=== PATIENT | female | born 1955 | race Caucasian/White ===

== ENCOUNTER 2019-09-06 13:43 | Observation (INO) | payer OTHER ==
[~2019-09-06 13:43] MED LIST: Iopamidol-370 76% 500 ML 1 ML ONE
--- NOTE | 2019-09-06 14:43 | CT ---
Exam: CT brain PROVIDED CLINICAL HISTORY: Headache, left-sided weakness COMPARISON: None FINDINGS: The ventricular system is normal in size and morphology. No evidence for intracranial hemorrhage or mass effect. The extracranial soft tissues and osseous structures demonstrate no evidence for an acute abnormality. IMPRESSION: No evidence for intracranial hemorrhage or mass effect. Findings discussed with the emergency departm ent 2:41 PM 09/06/2019.
[2019-09-06] MEDS ORDERED: Lorazepam 2 MG/ML VIAL ONE (15:06)
[2019-09-06] MEDS ORDERED: Aspirin Chewable 81 MG TAB ONE (15:07)
--- NOTE | 2019-09-06 15:12 | CT ---
EXAM: CT angiogram great vessels neck with IV contrast and three-dimensional reconstructions CT angiogram brain with IV contrast and three-dimensional reconstructions PROVIDED CLINICAL HISTORY: Left-sided weakness COMPARISON: None FINDINGS: There is a normal three-vessel configuration of the great vessels at the arch. The common carotid, internal carotid, subclavian and vertebral arteries demonstrate no evidence for s ignificant stenosis. There is no evidence for focal vessel stenosis, branch occlusion or aneurysm involving the intracrani al circulation. IMPRESSION: No significant stenosis.
--- NOTE | 2019-09-06 15:13 | RAD ---
EXAM: Portable chest PROVIDED CLINICAL HISTORY: Left-sided weakness COMPARISON: None FINDINGS: Cardiac and mediastinal silhouette is within normal limits. No focal consolidation, pleural fluid or pneumothorax evident. IMPRESSION: No evidence for an acute cardiopulmonary process.
[2019-09-06 16:01] LABS: Bilirubin Negative (Negative); Blood, Urine Negative (Negative); Clarity Clear (Clear); Glucose, Urine (Dipstick) Normal (Negative); Leukocyte Negative Leu/uL (Negative); Nitrite Negative (Negative); Protein, Urine (Dipstick) Negative (Neg-Trace); Urobilinogen Normal mg/dL (Less than 2)
[2019-09-06 16:33] LABS: Amphetamine Not Detected (NotDetected); Barbiturates Screen Not Detected (NotDetected); Benzodiazepine Screen Not Detected (NotDetected); Cocaine Metabolite Screen Not Detected (NotDetected); Medtox Control Line Valid? VALID (VALID); Medtox Reader # READER 1; Methadone Not Detected (NotDetected); Methamphetamine Not Detected (NotDetected); Opiate Screen Not Detected (NotDetected); Oxycodone Screen Not Detected (NotDetected); Phencyclidine (PCP) Not Detected (NotDetected); THC/Cannabinoid Screen Not Detected (NotDetected); Tricyclic Screen Not Detected (NotDetected)
[2019-09-06] MEDS ORDERED: diphenhydrAMINE 50 MG/ML VIAL ONE (16:36)
[2019-09-06] MEDS ORDERED: Metoclopramide HCl 10 MG/2 ML VIAL ONE (16:36)
[2019-09-06 17:59] LABS: #Eosinphils 0.1 thou/uL (0.0-0.7); #Lymphocytes 3.1 thou/uL (1.20-3.40); #Monocytes 0.8 thou/uL (0.11-0.59); #Neutrophils 5.8 thou/uL (1.40-6.50); %Basophils 0.2 % (0.0-1.0); %Lymphocytes 31.3 % (21.0-51.0); %Monocytes 8.6 % (0.0-10.0); Hemoglobin 11.5 g/dL (12.0-16.0); Mean Corpuscular HGB CONC 32.7 g/dL (32.0-36.0); Mean Corpuscular Hemoglobin 29.6 pg (27.0-31.0); Mean Corpuscular Volume 90.7 fL (78.0-98.0); Mean Platelet Volume 7.1 fL (7.4-10.4); Platelet Count 352 thou/uL (130-400); RBC Distribution Width 11.9 % (11.5-14.5); Red Blood Cell (RBC) Count 3.88 mill/uL (4.20-5.40); White Blood Cell (WBC) Count 9.8 thou/uL (4.8-10.8)
[2019-09-06 18:09] LABS: INR-International Normal Ratio 0.9; PTT 27.7 SEC (22.9-36.1); Prothrombin Time 12.6 sec (12.0-14.7)
[2019-09-06 18:10] LABS: ALT (SGPT) 14 U/L (8-55); AST (SGOT) 18 U/L (5-34); Albumin 3.5 g/dL (3.4-4.8); Alkaline Phosphatase 67 U/L (40-110); Anion Gap 11 mmol/L (10-20); BUN (Urea Nitrogen) 11 mg/dL (9.8-20.1); Bilirubin, Total 0.2 mg/dL (0.2-1.2); CK (CPK) 41 U/L (29-168); Calc. Creatinine Clearance 0 mL/min (70-130); Calcium 8.5 mg/dL (7.8-10.44); Carbon Dioxide 21 mmol/L (23-31); Chloride 110 mmol/L (98-107); Estimated GFR-MDRD 62; Globulin 2.8 g/dL (2.4-3.5); Glucose 92 mg/dL (80-115); Potassium 4.4 mmol/L (3.5-5.1); Protein, Total 6.3 g/dL (6.0-8.3); Sodium 138 mmol/L (136-145)
[2019-09-06 18:11] LABS: Troponin I 0.258 ng/mL (< 0.028)
[2019-09-06] MEDS ORDERED: Labetalol HCl 100 MG/20 ML VIAL SLOW IVP PRN (18:18)
[2019-09-06] MEDS ORDERED: hydrALAZINE 20 MG/ML VIAL SLOW IVP PRN (18:18)
--- NOTE | 2019-09-06 18:23 | PDOC.HHP ---
Hospitalist HPI - History of Present Illness left sided weakness, headache History of Present Illness: THis is a 64 year old female with past medical history of stroke in the past, hypertension who presents to the emergency room with headache and numbness that started after eating lunch. Patient states she ate lunch and then had an acute left sided headache. SHe is unsure how long it lasted for but when she got up and touched her face she noticed that her left cheek was numb. She then reported nausea and stated she vomited shortly after. Patient also reports numbness in her left arm and left leg and cramps and spasms in her left hand and left leg. SHe has had a stroke previously on the left side in the past. During that time her left hand used to cramp up as well and she would get a contracture in her fingers making it difficult to move her fingers. ED Course: THe patient presented with BP Of [address] head showed no acute disease. CTA showed no significant stenosis. Chest xRya was normal. Patient had an NIH stroke scale of 7, was not given TPA since per ER attending patient' s exam findings were inconsistent and seemed to have poor effort during neuro exam. Hospitalist ROS - Review of Systems Constitutional: denies: fever, chills Eyes: denies: vision change ENT: denies: ear pain, ear discharge Respiratory: denies: cough, dry, shortness of breath Cardiovascular: denies: chest pain, palpitations, orthopnea Gastrointestinal: denies: nausea, vomiting, abdominal pain Genitourinary: denies: dysuria, frequency - Medication Medications: Lisinopril Hospitalist History - Past Medical History Other Medical History: Hypertension CVA In the past COPD - Past Surgical History Other Surgical History: Hysterectomy - Family History Other Family History: Sister had stroke Mother heart disease Daughter adrenal cancer with metastasis to lungs - Dad prostate and bladder cancer MOther colon cancer Brother had heart attack - Social History Smoking Status: Former smoker (SMoked 5-6 cigarettes daily for 8 years, quit 2 years ago) Alcohol: reports: None Drugs: reports: Other (former cocaine user, used it daily and quit 2 years ago) . 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 Dec ROM left arm and left leg. Musculoskeletal - other findings: weakness left middle/ring/pinky finger. 4/5 LUE, 3/5 LLE, 5/5 RUE, 5/5 RLE Psychiatric: normal affect, normal behavior, A&O x 3, oriented to person Hospitalist Results - Labs Result Diagrams: 09/06/19 17:35 09/06/19 17:35 Lab results: WBC 9.8 thou/uL (4.8-10.8) 09/06/19 17:35 Hgb 11.5 g/dL (12.0-16.0) L 09/06/19 17:35 Hct 35.2 % (36.0-47.0) L 09/06/19 17:35 MCV 90.7 fL (78.0-98.0) 09/06/19 17:35 Plt Count 352 thou/uL (130-400) 09/06/19 17:35 Neutrophils % 59.0 % (42.0-75.0) 09/06/19 17:35 Sodium 138 mmol/L (136-145) 09/06/19 17:35 Potassium 4.4 mmol/L (3.5-5.1) 09/06/19 17:35 Chloride 110 mmol/L (98-107) H 09/06/19 17:35 Carbon Dioxide 21 mmol/L (23-31) L 09/06/19 17:35 BUN 11 mg/dL (9.8-20.1) 09/06/19 17:35 Creatinine 0.91 mg/dL (0.6-1.1) 09/06/19 17:35 Glucose 92 mg/dL (80-115) 09/06/19 17:35 Calcium 8.5 mg/dL (7.8-10.44) 09/06/19 17:35 Total Bilirubin 0.2 mg/dL (0.2-1.2) 09/06/19 17:35 AST 18 U/L (5-34) 09/06/19 17:35 ALT 14 U/L (8-55) 09/06/19 17:35 Alkaline Phosphatase 67 U/L (40-110) 09/06/19 17:35 Creatine Kinase 41 U/L (29-168) 09/06/19 17:35 Troponin I 0.258 ng/mL (< 0.028) H 09/06/19 17:35 Serum Total Protein 6.3 g/dL (6.0-8.3) 09/06/19 17:35 Albumin 3.5 g/dL (3.4-4.8) 09/06/19 17:35 Urine Ketones Negative mg/dL (Negative) 09/06/19 15:49 Urine Blood Negative (Negative) 09/06/19 15:49 Urine Nitrite Negative (Negative) 09/06/19 15:49 Ur Leukocyte Esterase Negative Isabel/uL (Negative) 09/06/19 15:49 - EKG Interpretation EKG: normal sinus rhythm with PVC Hospitalist H&P A/P - Plan Plan: This is a 64 year old female with hypertension, CVA in the past who presented to the ER with left sided weakness, headache admitted for CVA rule out Left sided weakness /headache -suspicious for stroke vs complicated migraine - s/p aspirin 325 mg in the ER - CT head normal, CTA showed no sign stenosis, chest X Ray normal. Will check MRI brain and ECHO - continue statin 40 mg qhs - IV labetalol and hydralazine prn for SBP > 220 - neurology consult Elevated troponin - no chest pain. Trop trending up to 0.2, will continue to trend - will consider anticoagulation in am if continues to trend up - repeat eKG - check ECHO ANemia - Hb 11, will monitor Hypertension - hold meds for now DVT prophylaxis: lovenox COde status: full code
[2019-09-06] MEDS ORDERED: diphenhydrAMINE 25 MG CAP PO PRN (18:26)
[2019-09-06] MEDS ORDERED: Prochlorperazine 10 MG/2 ML VIAL IM PRN (18:29)
[2019-09-06 20:00] VITALS: BMI 31.6
[2019-09-06 20:34] LABS: Troponin I Less than 0.010 ng/mL (< 0.028)
[2019-09-06] MEDS: Atorvastatin Calcium 40 MG TAB PO SCH (22:04)
[2019-09-07 05:48] LABS: Hemoglobin 11.4 g/dL (12.0-16.0); Mean Corpuscular HGB CONC 30.4 g/dL (32.0-36.0); Mean Corpuscular Hemoglobin 28.2 pg (27.0-31.0); Mean Corpuscular Volume 92.8 fL (78.0-98.0); Mean Platelet Volume 7.6 fL (7.4-10.4); Platelet Count 319 thou/uL (130-400); Red Blood Cell (RBC) Count 4.03 mill/uL (4.20-5.40)
[2019-09-07 06:04] LABS: Hemoglobin A1c 5.6 % (4.0-6.0)
[2019-09-07 06:19] LABS: ALT (SGPT) 12 U/L (8-55); AST (SGOT) 16 U/L (5-34); Albumin 3.4 g/dL (3.4-4.8); Alkaline Phosphatase 64 U/L (40-110); Anion Gap 13 mmol/L (10-20); BUN (Urea Nitrogen) 17 mg/dL (9.8-20.1); Bilirubin, Total 0.2 mg/dL (0.2-1.2); Calc. Creatinine Clearance 65 mL/min (70-130); Calcium 8.7 mg/dL (7.8-10.44); Carbon Dioxide 21 mmol/L (23-31); Cardiac Risk 2.9 (Less than 4.5); Chloride 109 mmol/L (98-107); Cholesterol 154 mg/dl (< 200 Desired); Estimated GFR-MDRD 47; Globulin 3.2 g/dL (2.4-3.5); Glucose 101 mg/dL (80-115); HDL Cholesterol 54 mg/dL (>60 Neg Risk); LDL Cholesterol, Calculated 85 mg/dL; Potassium 4.3 mmol/L (3.5-5.1); Protein, Total 6.6 g/dL (6.0-8.3); Sodium 139 mmol/L (136-145); Triglycerides 74 mg/dL (Less than 150)
[2019-09-07] MEDS: Aspirin 81 mg Enteric Coated Tablet PO SCH (09:20)
[2019-09-07] MEDS: Enoxaparin Sodium 40 MG/0.4 ML SYRINGE SC SCH (09:20)
[2019-09-07] MEDS ORDERED: Acetaminophen 325 MG TAB PO PRN (11:54)
[2019-09-07] MEDS ORDERED: Prochlorperazine Maleate 5 MG TAB PO PRN (12:07)
--- NOTE | 2019-09-07 12:22 | CON ---
DATE OF CONSULTATION: 09/07/2019 NEUROLOGY CONSULTATION REASON FOR CONSULTATION: Left-sided weakness, headache, rule out stroke. HISTORY OF PRESENT ILLNESS: Ms. Vicente Hansen is a 64-year-old female with medical history significant for stroke, hypertension, presented with headache and numbness after eating lunch yesterday. She also felt numbness and paresthesias in the left cheek and reported increased numbness and paresthesias in her left upper and lower extremities and worsening of weakness on the left side. She does have residual weakness from the prior stroke. She was brought to the emergency room, where a head CT was done, which did not reveal any acute intracranial pathology. CT angiogram, no significant stenosis. Chest x-ray was also unremarkable. She had NIH stroke scale of 7, so tPA was not given because of rapidly improving deficits. She denies nausea or vomiting, dizziness, loss of vision or loss of consciousness, chest pain, or abdominal pain. REVIEW OF SYSTEMS: All systems were reviewed and were negative except for pertinent positives and negatives mentioned in the HPI. MEDICATION: Lisinopril. PAST MEDICAL HISTORY: Hypertension, prior CVA, COPD. PAST SURGICAL HISTORY: Hysterectomy. FAMILY HISTORY: Mother had heart disease and sister has stroke. Daughter has adrenal cancer. The mother also has history of colon cancer and brother had coronary artery disease. 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 Reports that she has formerly used cocaine 09/06/19 17:35 Lab results: WBC 9.8 thou/uL (4.8-10.8) 09/06/19 17:35 Hgb 11.5 g/dL (12.0-16.0) L 09/06/19 17:35 Hct 35.2 % (36.0-47.0) L 09/06/19 17:35 MCV 90.7 fL (78.0-98.0) 09/06/19 17:35 Plt Count 352 thou/uL (130-400) 09/06/19 17:35 Neutrophils % 59.0 % (42.0-75.0) 09/06/19 17:35 Sodium 138 mmol/L (136-145) 09/06/19 17:35 Potassium 4.4 mmol/L (3.5-5.1) 09/06/19 17:35 Chloride 110 mmol/L (98-107) H 09/06/19 17:35 Carbon Dioxide 21 mmol/L (23-31) L 09/06/19 17:35 BUN 11 mg/dL (9.8-20.1) 09/06/19 17:35 Creatinine 0.91 mg/dL (0.6-1.1) 09/06/19 17:35 Glucose 92 mg/dL (80-115) 09/06/19 17:35 Calcium 8.5 mg/dL (7.8-10.44) 09/06/19 17:35 Total Bilirubin 0.2 mg/dL (0.2-1.2) 09/06/19 17:35 AST 18 U/L (5-34) 09/06/19 17:35 ALT 14 U/L (8-55) 09/06/19 17:35 Alkaline Phosphatase 67 U/L (40-110) 09/06/19 17:35 Creatine Kinase 41 U/L (29-168) 09/06/19 17:35 Troponin I 0.258 ng/mL (< 0.028) H 09/06/19 17:35 Serum Total Protein 6.3 g/dL (6.0-8.3) 09/06/19 17:35 Albumin 3.5 g/dL (3.4-4.8) 09/06/19 17:35 Urine Ketones Negative mg/dL (Negative) 09/06/19 15:49 Urine Blood Negative (Negative) 09/06/19 15:49 Urine Nitrite Negative (Negative) 09/06/19 15:49 Ur Leukocyte Esterase Negative Isabel/uL (Negative) 09/06/19 15:49 - EKG Interpretation EKG: normal sinus rhythm with PVC PHYSICAL EXAMINATION: 160/80 88 18 CVS: Regular rate and rhythm. CHEST: Clear. ABDOMEN: Soft. NECK: No carotid bruit. NEUROLOGIC: Mental status; the patient is alert and oriented to person, place, and time. Cranial nerves 2 through 12 are intact. Motor, muscle tone and bulk are normal. Strength 5/5 in the right upper and lower extremities, and left upper extremity is 4+/5, left lower extremity is 3/5. Gait not tested because of the patient's safety reasons. Reflexes 2+ bilaterally and sensory intact. Cerebellar, unable to perform on the right secondary to weakness. DATA REVIEWED: I reviewed the labs, which were significant for anemia. Head CT did not reveal any acute intracranial pathology. ASSESSMENT AND PLAN: Ms. Hansen is a 64-year-old female with a history significant hypertension and prior stroke, presented with worsening of residual left-sided weakness and headache. Differential diagnosis includes new stroke versus complicated migraine. Recommend an MRI to rule out acute intracranial pathology. Recommend echocardiogram to rule out cardioembolic source and telemetry to rule out arrhythmias. Consider Benadryl and Compazine for headache. Neurochecks every 4 hours. Continue blood pressure management per primary team. Consider aspirin and statin for secondary stroke prevention. Neuro checks every 4 hours. Continue home medications. Continue medical management per Primary Team. Further recommendation depends on the results of the testing. PT/OT/speech. Thank you for the consult. Job ID: [id number] MTDD
--- NOTE | 2019-09-07 14:19 | PDOC.HOSPP ---
- Subjective Encounter Date: 09/07/19 Encounter Time: 14:19 - Objective Vital Signs & Weight: Vital Signs (12 hours) Temp Pulse Pulse Pulse Resp BP BP 09/07/19 11:35 97.5 F L 96 15 09/07/19 09:56 77 99 124/76 135/76 09/07/19 09:55 99 124/76 135/76 09/07/19 08:08 98.2 F 79 16 09/07/19 04:46 98.4 F 76 14 BP Pulse Ox 09/07/19 11:35 137/93 H 96 09/07/19 09:56 09/07/19 09:55 09/07/19 08:08 131/68 94 L 09/07/19 04:46 120/62 97 Weight Weight 190 lb I&O: 09/06/19 09/07/19 09/08/19 06:59 06:59 06:59 Intake Total 486 Balance 486 Result Diagrams: 09/07/19 05:36 09/07/19 05:36 Hospitalist ROS - Medication Medications: Active Medications Generic Name Dose Route Start Last Admin Trade Name Freq PRN Reason Stop Dose Admin Acetaminophen 650 mg 09/07/19 11:54 09/07/19 13:24 Tylenol PO 650 mg Q6H PRN Administration Headache Aspirin 81 mg 09/07/19 09:00 09/07/19 09:20 Ecotrin PO 81 mg DAILY RONY Administration Atorvastatin Calcium 40 mg 09/06/19 21:00 09/06/19 22:04 Lipitor PO 40 mg HS RONY Administration Diphenhydramine HCl 25 mg 09/06/19 18:26 09/07/19 12:00 Benadryl PO 25 mg Q6H PRN Administration Fever/Mild Pain/HEADACHE Enoxaparin Sodium 40 mg 09/07/19 09:00 09/07/19 09:20 Lovenox SC 40 mg 0900 RONY Administration Prochlorperazine Maleate 10 mg 09/07/19 12:07 09/07/19 12:38 Compazine PO 10 mg Q4H PRN Administration Nausea/Vomiting Sodium Chloride 10 ml 09/06/19 18:18 09/06/19 22:04 Flush - Normal Saline IVF 10 ml PRN PRN Administration Saline Flush - Exam General Appearance: NAD, awake alert Eye: PERRL, anicteric sclera ENT: normocephalic atraumatic, no oropharyngeal lesions Neck: supple, no JVD Heart: RRR, no murmur, no gallops, no rubs Respiratory: CTAB, no wheezes, no rales, no ronchi Gastrointestinal: soft, non-tender, non-distended, normal bowel sounds Extremities: no cyanosis, no clubbing, no edema Skin: normal turgor, no lesions, no rashes Neurological: cranial nerve grossly intact, normal sensation to touch, no focal deficits, no new deficit Hosp A/P - Plan This is a 64 year old male who presented
--- NOTE | 2019-09-07 14:30 | PDOC.HOSPP ---
- Subjective Encounter Date: 09/07/19 Encounter Time: 12:00 Subjective: The patient continues to report 8/10 headache. She still has some left sided weakness. No nausea or double vision . MRI pending HIatal hernia - pt reporting some acid reflux and requesting omeprazole. She is asking if this can be corrected Restless leg syndrome - pt reports taking ropinirole 3 mg qhs and was requesting this - Objective Vital Signs & Weight: Vital Signs (12 hours) Temp Pulse Pulse Pulse Resp BP BP 09/07/19 11:35 97.5 F L 96 15 09/07/19 09:56 77 99 124/76 135/76 09/07/19 09:55 99 124/76 135/76 09/07/19 08:08 98.2 F 79 16 09/07/19 04:46 98.4 F 76 14 BP Pulse Ox 09/07/19 11:35 137/93 H 96 09/07/19 09:56 09/07/19 09:55 09/07/19 08:08 131/68 94 L 09/07/19 04:46 120/62 97 Weight Weight 190 lb I&O: 09/06/19 09/07/19 09/08/19 06:59 06:59 06:59 Intake Total 486 Balance 486 Result Diagrams: 09/07/19 05:36 09/07/19 05:36 Hospitalist ROS - Review of Systems Constitutional: denies: fever, chills - Medication Medications: Active Medications Generic Name Dose Route Start Last Admin Trade Name Freq PRN Reason Stop Dose Admin Acetaminophen 650 mg 09/07/19 11:54 09/07/19 13:24 Tylenol PO 650 mg Q6H PRN Administration Headache Aspirin 81 mg 09/07/19 09:00 09/07/19 09:20 Ecotrin PO 81 mg DAILY RONY Administration Atorvastatin Calcium 40 mg 09/06/19 21:00 09/06/19 22:04 Lipitor PO 40 mg HS RONY Administration Diphenhydramine HCl 25 mg 09/06/19 18:26 09/07/19 12:00 Benadryl PO 25 mg Q6H PRN Administration Fever/Mild Pain/HEADACHE Enoxaparin Sodium 40 mg 09/07/19 09:00 09/07/19 09:20 Lovenox SC 40 mg 0900 RONY Administration Prochlorperazine Maleate 10 mg 09/07/19 12:07 09/07/19 12:38 Compazine PO 10 mg Q4H PRN Administration Nausea/Vomiting Sodium Chloride 10 ml 09/06/19 18:18 09/06/19 22:04 Flush - Normal Saline IVF 10 ml PRN PRN Administration Saline Flush - Exam General Appearance: NAD, awake alert Eye: PERRL, anicteric sclera ENT: normocephalic atraumatic, no oropharyngeal lesions Neck: no JVD Heart: RRR, no murmur, no gallops, no rubs Respiratory: CTAB, no wheezes, no rales, no ronchi Gastrointestinal: soft, non-tender, non-distended, normal bowel sounds Extremities: no cyanosis, no clubbing, no edema Skin: normal turgor, no lesions, no rashes Neurological: cranial nerve grossly intact, normal sensation to touch, no focal deficits, no new deficit Neurological - other findings: left pronator drift. LUE 4/5, LLE 3-4/5, RUE 5/5 , RLE 5/5 Musculoskeletal: normal tone, normal strength, no muscle wasting Psychiatric: normal affect, normal behavior, A&O x 3, oriented to person Hosp A/P - Plan This is a 64 year old female with hypertension, CVA in the past who presented to the ER with left sided weakness, headache admitted for CVA rule out Left sided weakness /headache -suspicious for stroke vs complicated migraine - s/p aspirin 325 mg in the ER. Continue with aspirin 81 mg - CT head normal, CTA showed no sign stenosis, chest X Ray normal. MRI brain pending and ECHO pending - continue statin 40 mg qhs - IV labetalol and hydralazine prn for SBP > 220 - neurology consulted feel this could be stroke vs migraine - continue with PT/OT and speech therapy Elevated troponin - likely type II NSTEMI - no chest pain. Trop trending up to 0.2, third tropinn normal - ECHO pending ANemia - Hb 11, will monitor Hypertension - blood pressure controlled in the 130's DVT prophylaxis: lovenox Code status: full code
--- NOTE | 2019-09-07 15:51 | MRI ---
CT BRAIN WITHOUT CONTRAST: HISTORY: Level II stroke. Headache, left-sided weakness. FINDINGS: Correlation is made with the previous day's CT scan. There is a small focus of restricted diffusion of the anterior aspect of the left cerebellar hemisphe re. Multiple foci of T2 prolongation in the periventricular white matter are consistent with chronic small-vessel ischemic disease. The ventricular size is normal and the basilar cisterns patent. No evidence of hemorrhage, midline shift, or abnormal extraaxial fluid collections is seen. The visuali zed paranasal sinuses air cells are well aerated. IMPRESSION: Recent lacunar infarction in the left anterior cerebellar hemisphere. POS: MZA
--- NOTE | 2019-09-07 16:07 | EKG ---
Test Reason : ROUTINE Blood Pressure : / mmHG Vent. Rate : 088 BPM Atrial Rate : 088 BPM P-R Int : 174 ms QRS Dur : 072 ms QT Int : 396 ms P-R-T Axes : 076 001 054 degrees QTc Int : 479 ms Normal sinus rhythm Normal ECG When compared with ECG of 06-SEP-2019 14:18, (Unconfirmed) Premature ventricular complexes are no longer Present Criteria for Inferior infarct are no longer Present Confirmed by LANG SHAH, SIbrahima ([id number]) on 09/07/2019 4:06:37 PM Referred By: JANIYA POP Confirmed By:DR. Marlyn CROFT MD
[2019-09-07] MEDS ORDERED: Ketorolac Tromethamine 30 MG/ML VIAL IVP SCH (17:30)
[2019-09-07] MEDS ORDERED: rOPINIRole HCl 1 MG TAB PO SCH (21:00)
[2019-09-07] MEDS: Atorvastatin Calcium 40 MG TAB PO SCH (21:41)
[2019-09-08 05:31] LABS: Anion Gap 13 mmol/L (10-20); BUN (Urea Nitrogen) 18 mg/dL (9.8-20.1); Calc. Creatinine Clearance 72 mL/min (70-130); Calcium 9.2 mg/dL (7.8-10.44); Carbon Dioxide 21 mmol/L (23-31); Chloride 106 mmol/L (98-107); Estimated GFR-MDRD 53; Glucose 93 mg/dL (80-115); Potassium 4.3 mmol/L (3.5-5.1); Sodium 136 mmol/L (136-145)
[2019-09-08 05:55] LABS: Hemoglobin 11.7 g/dL (12.0-16.0); Mean Corpuscular HGB CONC 30.8 g/dL (32.0-36.0); Mean Corpuscular Hemoglobin 28.3 pg (27.0-31.0); Mean Corpuscular Volume 91.7 fL (78.0-98.0); Platelet Count 236 thou/uL (130-400); RBC Distribution Width 12.1 % (11.5-14.5); Red Blood Cell (RBC) Count 4.16 mill/uL (4.20-5.40); White Blood Cell (WBC) Count 6.8 thou/uL (4.8-10.8)
[2019-09-08] MEDS: Aspirin 81 mg Enteric Coated Tablet PO SCH (09:00)
[2019-09-08] MEDS: Enoxaparin Sodium 40 MG/0.4 ML SYRINGE SC SCH (09:00)
[2019-09-08 11:35] VITALS: BP 131/79; TEMP 98.2
[2019-09-08] MEDS ORDERED: Calcium Carbonate 500 MG ChewTAB PO PRN (11:49)
--- NOTE | 2019-09-08 13:43 | PDOC.HOSPP ---
- Subjective Encounter Date: 09/08/19 Subjective: NEUROLOGY PROGRESS NOTE No acute events overnight. Headache improved 09/05. - Objective Vital Signs & Weight: Vital Signs (12 hours) Temp Pulse Resp BP Pulse Ox 09/08/19 11:34 98.2 F 96 20 131/79 95 09/08/19 07:48 98.4 F 84 18 132/74 96 09/08/19 04:00 98.1 F 80 12 129/65 95 Weight Weight 190 lb I&O: 09/07/19 09/08/19 09/09/19 06:59 06:59 06:59 Intake Total 486 420 Balance 486 420 Result Diagrams: 09/08/19 04:59 09/08/19 04:59 Radiology Reviewed by me: Yes EKG Reviewed by me: Yes Hospitalist ROS - Review of Systems Constitutional: denies: fever, chills, sweats, weakness, malaise, other Eyes: denies: pain, vision change, conjunctivae inflammation, eyelid inflammation, redness, other ENT: denies: ear pain, ear discharge, nose pain, nose discharge, nose congestion , mouth pain, mouth swelling, throat pain, throat swelling, other (Headache) Respiratory: denies: cough, dry, shortness of breath, hemoptysis, SOB with excertion, pleuritic pain, sputum, wheezing, other Cardiovascular: denies: chest pain, palpitations, orthopnea, paroxysmal noc. dyspnea, edema, light headedness, other Gastrointestinal: denies: nausea, vomiting, abdominal pain, diarrhea, constipation, melena, hematochezia, other Genitourinary: denies: dysuria, frequency, incontinence, hematuria, retention, other Musculoskeletal: denies: neck pain, shoulder pain, arm pain, back pain, hand pain, leg pain, foot pain, other Skin: denies: rash, lesions, luisana, bruising, other Neurological: reports: weakness, incoordination. denies: numbness, change in speech, confusion, seizures, other - Medication Medications: Active Medications Generic Name Dose Route Start Last Admin Trade Name Freq PRN Reason Stop Dose Admin Acetaminophen 650 mg 09/07/19 11:54 09/07/19 13:24 Tylenol PO 650 mg Q6H PRN Administration Headache Aspirin 81 mg 09/07/19 09:00 09/08/19 09:00 Ecotrin PO 81 mg DAILY RONY Administration Atorvastatin Calcium 40 mg 09/06/19 21:00 09/07/19 21:41 Lipitor PO 40 mg HS ROYN Administration Diphenhydramine HCl 25 mg 09/06/19 18:26 09/07/19 12:00 Benadryl PO 25 mg Q6H PRN Administration Fever/Mild Pain/HEADACHE Enoxaparin Sodium 40 mg 09/07/19 09:00 09/08/19 09:00 Lovenox SC 40 mg 0900 RONY Administration Pantoprazole Sodium 40 mg 09/08/19 09:00 09/08/19 09:00 Protonix PO 40 mg DAILY RONY Administration Prochlorperazine Maleate 10 mg 09/07/19 12:07 09/07/19 12:38 Compazine PO 10 mg Q4H PRN Administration Nausea/Vomiting Ropinirole HCl 3 mg 09/07/19 21:00 09/07/19 21:41 Requip PO 3 mg HS RONY Administration Sodium Chloride 10 ml 09/06/19 18:18 09/07/19 21:41 Flush - Normal Saline IVF 10 ml PRN PRN Administration Saline Flush - Exam General Appearance: awake alert Eye: PERRL, anicteric sclera ENT: normocephalic atraumatic, no oropharyngeal lesions, moist mucosa Neck: supple Heart: RRR Respiratory: CTAB Gastrointestinal: soft Extremities: no cyanosis, no clubbing, no edema Skin: normal turgor, no lesions, no rashes Neurological: cranial nerve grossly intact, normal sensation to touch Neurological - other findings: Left sided weakness Musculoskeletal: normal tone Psychiatric: A&O x 3 Hosp A/P (1) Stroke Code(s): I63.9 - CEREBRAL INFARCTION, UNSPECIFIED Status: Acute - Plan 64 year old consulted for left sided weakness and headache. Headache improved. Consider propranolol for headache prophylaxis. MRI brain 09/06 reviewed which showed acute lacunar infarct in the left anterior cerebellar region. Neuro checks every 4 hours. Echocardiography was unremarkable. Telemetry Continue ASA and stain for secondary stroke prevention. Strict control of BG and BP. PT/OT/Speech EEG reviewed which did not reveal any seizure activity or presence of interictal epileptiform discharges. Continue home medications. Continue medical management per primary team. Continue supportive measures. No further recommendations from neurologic stand point.
--- NOTE | 2019-09-08 19:26 | DIS ---
DATE OF ADMISSION: 09/06/2019 DATE OF DISCHARGE: 09/08/2019 DISCHARGE DIAGNOSES: 1. Left cerebellar infarction 2. Complicated migraine3 3. 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 Anemia 4. Hypertension. CONSULTS: Neurology with Dr. Sasha Flores. PROCEDURE: Echo. BRIEF HISTORY OF PRESENT ILLNESS: This is a 64-year-old female, with past medical history of stroke in the past, hypertension, who presented to the emergency room with headache and numbness. Patient reported acute left-sided headache and left cheek numbness. She also reported numbness in her left arm and left leg and cramps as well. Patient presented to the ER with a blood pressure of [address] head showed no acute disease. CTA showed no significant stenosis. Chest x-ray was normal. TPA was not given due to fluctuating exam findings and some improvement in her neuro exam. She is admitted for further workup. HOSPITAL COURSE: Left cerebellar infarction/complicated migraine: The patient had an MRI of her brain done on the , which showed a recent lacunar infarction in the left anterior cerebellar hemisphere. Per Neurology, this may explain her balance difficulties, but does not explain her left-sided face numbness or left-sided arm weakness. Neurology advised to continue her aspirin and her atorvastatin. Echocardiogram showed no thrombus and an EF of 55% to 60%. She was prescribed propranolol 10 mg twice daily for migraine prophylaxis. She should follow up with a neurologist if her headache does not improve. She was seen by Physical Therapy, who felt that the patient was independent with a walker. She will be discharged back to the residential and advised to continue to use her walker. Elevated troponin: Patient had a troponin of 0.258 which came down to 0.010. She had no chest pain. Her echo showed no wall motion abnormalities. Anemia: Patient had a hemoglobin of 11.7. Her TSH was normal. This can be monitored further as an outpatient. Hypertension: Her blood pressure was 157/39, but improved to 131/79 without any antihypertensives. Her lisinopril was discontinued. She will be prescribed propranolol 10 mg twice daily, which will also help with her blood pressure. DISCHARGE PHYSICAL EXAMINATION: VITAL SIGNS: Temp 98.1, heart rate 96, respiratory rate 20, O2 saturation 95% on room air, and blood pressure 131/79. GENERAL: Patient is alert, awake, and oriented x3. CVS: Regular rate and rhythm, with no murmurs, rubs, or gallops. LUNGS: Clear to auscultation bilaterally. ABDOMEN: Positive bowel sounds, soft, nontender, and nondistended. NEUROLOGIC: Patient has no facial droop. She does have 5/5 strength in her upper and lower extremities. Of note, she gives poor effort to arm flexion and is 4/ 5 in her left arm, possibly from poor effort. PERTINENT LABORATORY DATA: CBC, 09/07: White blood cell count 6.8, hemoglobin 11.6, hematocrit 38.1, and platelet count 236. BMP, 09/07: Unremarkable. Lipid panel, 09/06: LDL is 85, cholesterol 154, and HDL 54. HbA1c: 5.6. TSH: 1.396. UA: Unremarkable. U-tox: Negative. IMAGING: Echo 09/06: EF 55% to 60%. Mild MR. Mild TR. Trivial pericardial effusion. CT brain, 09/05: No acute hemorrhage. Chest x-ray, 09/05: Shows no acute disease. CTA, 09/05: Shows no significant stenosis. Brain MRI: Shows recent lacunar infarction in the left anterior cerebellar hemisphere. ACTIVITY: As tolerated. DIET: Heart-healthy diet. DISCHARGE CONDITION: Stable for discharge to residential. Patient is to use a walker on discharge. DISCHARGE MEDICATIONS: New prescriptions: 1. Inderal 10 mg p.o. b.i.d. 2. Atorvastatin 40 mg p.o. at bedtime. 3. Aspirin 81 mg p.o. daily. 4. Ropinirole 3 mg p.o. at bedtime for restless legs syndrome. All other home medications were resumed. Please refer to discharge med rec sheet. DISCHARGE INSTRUCTIONS: Patient is to follow up with her PCP in a week. Continue with physical therapy on discharge. She should take propranolol 10 mg twice daily and follow up with the PCP if her headaches remain uncontrolled for further up regulation. Job ID: [id number] [facility]
[2019-09-08] MEDS ORDERED: Propranolol 10 MG TAB PO SCH (21:00)
--- NOTE | 2019-09-12 13:27 | EKG ---
Test Reason : Blood Pressure : / mmHG Vent. Rate : 105 BPM Atrial Rate : 105 BPM P-R Int : 126 ms QRS Dur : 072 ms QT Int : 352 ms P-R-T Axes : 056 -39 029 degrees QTc Int : 465 ms Sinus tachycardia with occasional Premature ventricular complexes Left axis deviation Abnormal ECG Confirmed by SHELBI SUAREZ DO ([id number]), online content editor SHEFALI LEONARD ([id number]) on 09/12/2019 1:26:43 PM Referred By: Confirmed By:SHELBI SUAREZ DO
== END 2019-09-08 13:41 ==
LOC: ERS 13:43 → EDSEX 13:43 → 2SE 16:33 → EEVIPCON 16:33
PROVIDERS: ADMIT Internal Medicine; ATTEND Internal Medicine
DX: I63.81 Other cerebral infarction due to occlusion or stenosis of small artery (principal); R20.0 Anesthesia of skin; R53.1 Weakness; G43.109 Migraine with aura, not intractable, without status migrainosus; I21.A1 Myocardial infarction type 2; D64.9 Anemia, unspecified; I10 Essential (primary) hypertension; J44.9 Chronic obstructive pulmonary disease, unspecified; R79.89 Other specified abnormal findings of blood chemistry; F14.11 Cocaine abuse, in remission; K44.9 Diaphragmatic hernia without obstruction or gangrene; G25.81 Restless legs syndrome; R29.707 NIHSS score 7; Z87.891 Personal history of nicotine dependence; Z79.899 Other long term (current) drug therapy
CPT/HCPCS: 36415; 51701; 70450; 70496; 70498; 70551; 71045; 80048; 80053; 80061; 80306; 81003; 82550; 83036; 84443; 84484; 85025; 85027; 85610; 85730; 93005; 93010; 93306; 96374; 96375; A4353; G0378; J1200; J1650; J1885; J2060; J2765; Q0163; Q0164; Q9967